=== PATIENT | male | born 1980 | race Caucasian/White ===

== ENCOUNTER 2017-03-16 01:08 | Emergency (ER) | payer SELFPAY ==
[~2017-03-16] VITALS: Ht 177.8 cm; Wt 105.6 kg
[2017-03-16 01:09] VITALS: BP 143/91
== END 2017-03-16 03:01 | disposition home or self-care (01) ==
LOC: ED 02:42
DX: J02.8 Acute pharyngitis due to other specified organisms (principal)
CPT/HCPCS: 87081; 87880; 99284